=== PATIENT | female | born 1990 | race Caucasian/White ===

== ENCOUNTER 2017-01-09 14:47 | Inpatient (IN) | payer MEDICAID ==
--- NOTE | 2017-01-07 18:36 | HP ---
Date/Time of Note Date/Time of Note DATE: 01/07/17 TIME: 18:35 OB - History Hx of Present Free Text/Dictation OB Triage Pt is a 26yo at 39+6 presenting with uterine contractions since midday yesterday. Pt has hx of x1, C/S x1 and desires TOLAC. Reports normal FM, denies LOF or VB. Estimated Due Date: Jan 08, 2017 : 3 Para: 2 Care: Good Care Past Family/Social History * Past Medical, Surgical, Family and Obstetric Histories reviewed from chart. OB Admission Exam Vital Signs Vital Signs 97.7 114/75 107-> 99 18 Physical Exam Cervical Dilatation: 1cm Effacement: 50% Station: -2 Membranes: Intact Heart Rate: 120's Accelerations: Accelerations Present Decelerations: No Decelerations Varibility: Moderate Contractions on Admission: >10 Minutes Apart (3 UCs/1hr) OB Assessment/Plan Other Assessment: Term contractions Other plan: Pt in latent labor with infrequent UCs FWB reassuring w/reactive NST Strict labor, ROM and FKC precautions reviewed Pt verbalized understanding Pt instructed to f/up with primary OBDr. Khan's office tomorrow Questions answered to patient's satisfaction LISY DIEHL MD Jan 07, 2017 18:36
[~2017-01-09] VITALS: Ht 152.4 cm; Wt 56.8 kg
[~2017-01-09 14:47] MED LIST: PRENAT PO
[2017-01-09 15:05] VITALS: Ht 152.4 cm; Wt 56.8 kg
[2017-01-09 15:06] VITALS: BP 125/75; PULSE 88; RESP 18
--- NOTE | 2017-01-09 15:29 | RADRPT ---
PROCEDURE: US OB biophysical profile. CLINICAL INDICATION: decreased movements, post dates TECHNIQUE: Multiple sonographic images of the pelvis were obtained. The images were reviewed on a PACS workstation. COMPARISON: No prior studies are available for comparison. FINDINGS: There is a single viable intrauterine gestation. Cardiac activity is present with 118 beats per min tessie. There is a vertex presentation. The placenta is anterior. There is no evidence of placental abruption. There is a decreased amount of amniotic fluid with an PHANI = 6.4 cm. Biophysical profile: movement 2/2 tone 2/2. breathing 2/2 PHANI 2/2 Total 06/23 RPTAT: AA . IMPRESSION: Normal biophysical profile. Mild oligohydramnios. . .Himanshu Loya MD, Date Time Electronically viewed and signed by .Himanshu Loya MD, MD on 01/09/2017 15:28 .S/
--- NOTE | 2017-01-09 16:03 | HP ---
Date/Time of Note Date/Time of Note DATE: 01/09/17 TIME: 16:02 OB - History Hx of Present Free Text/Dictation OB Triage Pt is a 26yo at 40+1 presenting with uterine contractions x4d. She was seen in OB triage and SVE was 1/50/-2 on 01/07/17, then in Dr. Khan's office and said to be 2/100+1 yesterday. She was due for ANTC today however when she went and told the staff she was charity, they sent her straight to triage. Pt has hx of x1, C/S x1 and desires TOLAC. Reports normal FM, denies LOF or VB. PROCEDURE: US OB biophysical profile. CLINICAL INDICATION: decreased movements, post dates TECHNIQUE: Multiple sonographic images of the pelvis were obtained. The images were reviewed on a PACS workstation. COMPARISON: No prior studies are available for comparison. FINDINGS: There is a single viable intrauterine gestation. Cardiac activity is present with 118 beats per minute. There is a vertex presentation. The placenta is anterior. There is no evidence of placental abruption. There is a decreased amount of amniotic fluid with an PHANI = 6.4 cm. Biophysical profile: movement 2/2 tone 2/2. breathing 2/2 PHANI 2/2 Total 88 RPTAT: AA . IMPRESSION: Normal biophysical profile. Mild oligohydramnios. . Estimated Due Date: Jan 08, 2017 : 3 Para: 2 Care: Good Care Obstetrical Complications: None Medical Complications: None Past Family/Social History * Past Medical, Surgical, Family and Obstetric Histories reviewed from chart. Blood Type: O+ Rubella: immune RPR/VDRL: Negative GBS Status: Negative HBsAG: Negative OB Admission Exam Vital Signs Vital Signs Vital Signs Date Time Temp Pulse Resp B/P Pulse Ox O2 Delivery O2 Flow Rate FiO2 01/09/17 15:06 97.8 88 18 125/75 Room Air Physical Exam Cervical Dilatation: 1cm Effacement: Other (40%) Station: -2 (posterior) Membranes: Intact Heart Rate: 120's Accelerations: Accelerations Present Decelerations: No Decelerations Varibility: Moderate Contractions on Admission: < 5 Minutes Apart (q2-6) OB Assessment/Plan Other Assessment: Term UCs without cervical change Reassuring status PHANI 6.5cm Hx of C/S x1, desiring TOLAC Other plan: Given hx of prior C/S, unchanged cervical exam over 2hrs and pt quite uncomfortable, pt offered therapeutic rest and prolonged r/o labor Morphine 10mg IM and Compazine 10mg IM x1 given S/p PO hydration. Will repeat PHANI Reevaluate pt in several hours Admission pending cervical change and/or PHANI LISY DIEHL MD Jan 09, 2017 16:03
[2017-01-09] MEDS ORDERED: PROCHLORPERAZINE 10 MG INJ IM ONE (18:00)
[2017-01-09] MEDS ORDERED: morphine 10 MG INJ IM ONE (18:00)
--- NOTE | 2017-01-09 18:52 | RADRPT ---
PROCEDURE: US OB. CLINICAL INDICATION: Pelvic pain. Lower 85. TECHNIQUE: Multiple sonographic images of the pelvis were obtained. The images were reviewed on a PACS workstation. COMPARISON: No prior studies are available for comparison. FINDINGS: There is a single viable intrauterine gestation. Cardiac activity is present with 137 beats per min pamunkey. There is a vertex presentation. The placenta is grade II and anterior. There is no evidence for an abruption or placenta previa. The PHANI is 10 cm. IMPRESSION: PHANI = 10 cm RPTAT: HPNM Physician Vicky Date Time Electronically viewed and signed by Physician Vicky on 01/09/2017 18:52 /
[2017-01-09] MEDS ORDERED: IBUPROFEN 600 MG TAB PO PRN (20:30)
[2017-01-09] MEDS ORDERED: CARBOPROST 250 MCG INJ IM PRN (20:30)
[2017-01-09] MEDS ORDERED: BUTORPHANOL 2 MG INJ IV PRN (20:30)
[2017-01-09] MEDS ORDERED: LIDOCAINE 1% (MPF) 30 ML INJ INJ PRN (20:30)
[2017-01-09] MEDS ORDERED: METHYLERGONOVINE 0.2 MG INJ IM PRN (20:30)
[2017-01-09] MEDS ORDERED: OXYTOCIN 30 UNITS/LR 500 ML IV PRN (20:30)
[2017-01-09] MEDS ORDERED: MISOPROSTOL 200 MCG TAB PR PRN (20:30)
[2017-01-09] MEDS ORDERED: OXYTOCIN 30 UNITS/LR 500 ML IV SCH ×2 (20:30)
--- NOTE | 2017-01-09 20:58 | TRIAGE ---
OB Triage Datetime Report Generated by CPN: 01/09/2017 20:57 Datetime: 01/09/2017 19:00 Frequency: 3-6 Monitor Mode: External Duration (sec)2399: 50-90 Quality: Moderate Pattern: Normal: <= 5 Contractions in 10 Minutes Resting Tone [place]: Relaxed FHR Baseline Rate: 120 Monitor Mode: External US FHR Baseline Changes: No Baseline Change Variability: Moderate 6-25 bpm Accelerations: 15X15 Decelerations: None Category: Category I Pain Scale: 6 Pain Presence: Intermittent Pain Type: Contraction; Pressure Pain Location: Abdomen; Back Pain Goal: 0 Pain Relief Measures: Comfort Measures Datetime: 01/09/2017 18:00 Frequency: 2-6 Monitor Mode: External Duration (sec)2399: 50-100 Quality: Moderate Pattern: Normal: <= 5 Contractions in 10 Minutes Resting Tone [place]: Relaxed FHR Baseline Rate: 120 Monitor Mode: External US FHR Baseline Changes: No Baseline Change Variability: Moderate 6-25 bpm Accelerations: 15X15 Decelerations: None Category: Category I Pain Scale: 6 Pain Presence: Intermittent Pain Type: Contraction; Pressure Pain Location: Abdomen; Back Pain Goal: 0 Pain Relief Measures: Comfort Measures Datetime: 01/09/2017 17:11 Dilatation (cms): 1.0 Effacement (%): 50 Station: -2 Exam By: Sanjuanita RN Datetime: 01/09/2017 16:00 Assessment Type: Triage Level of Consciousness: Fully Conscious DTR's/Clonus: DTRs 2+; No Clonus Headache: Denies Blurred Vision: No Respiratory Effort: Unlabored; Regular Rhythm; Equal Expansion Breath Sounds, Left: Clear and Equal Breath Sounds, Right: Clear and Equal Nausea/Vomiting: Denies RUQ Epigastric Pain: Denies Lower Extremities Edema: None Degree: None Upper Extremities Edema: None Degree: None Facial Edema: None History of Falling: (0) No Secondary Diagnosis: (0) No Ambulatory Aid: (0) Bedrest/Nurse Assist IV Therapy: (0) No Gait: (0) Normal/Bedrest/Immobile Mental Status: (0) Oriented to Own Ability Fall Score: 0 Fall Risk Score Definition: No Risk: No action required Datetime: 01/09/2017 15:16 Frequency: OCC Duration (sec)2399: 60-90 FHR Baseline Rate: 120 Monitor Mode: External US FHR Baseline Changes: No Baseline Change Variability: Moderate 6-25 bpm Accelerations: 15X15 Decelerations: None Category: Category I Pain Scale: 5 Pain Presence: Intermittent Pain Type: Contraction; Pressure Pain Location: Abdomen; Back Pain Goal: 0 Pain Relief Measures: Comfort Measures Datetime: 01/09/2017 15:04 Time of Arrival: 01/09/2017 14:44 EGA: 40.1 Arrived By: Ambulatory Arrived From: Dr. Office Chief Complaint: UC Movement: Present Contractions: Regular Time Contractions Began: 01/08/2017 22:00 Rupture of Membranes: Denies Vaginal Bleeding: None Vaginal Discharge: Denies Recent Sexual Intercouse: Denies Abdominal Trauma: Not Applicable Patient Complaints: Contractions Time Provider Notified: 01/09/2017 14:50 Provider Notified: Kevin Initial Plan: NST, BPP/PHANI, allow pt to ambulate for 2 hours, perform repeat VE Datetime: 01/09/2017 15:00 Dilatation (cms): 1.5 Effacement (%): 40 Station: -2 Exam By: MD Brown Datetime: 01/09/2017 14:55 Stage of : OB Triage Datetime: 01/07/2017 18:00 Stage of : OB Triage Level of Consciousness: Fully Conscious Frequency: 2UC/HR Monitor Mode: External Duration (sec)2399: 70-110 Quality: Moderate Resting Tone [place]: Relaxed FHR Baseline Rate: 125 Monitor Mode: External US Variability: Moderate 6-25 bpm Accelerations: 15X15 Decelerations: None Pain Scale: 3 Pain Presence: Intermittent Pain Type: Cramping Pain Location: Abdomen Pain Goal: 3 Pain Relief Measures: Comfort Measures Membrane Status: Intact Vaginal Bleeding: None Datetime: 01/07/2017 17:20 Fall Score: 0 Fall Risk Score Definition: No Risk: No action required Datetime: 01/07/2017 17:18 EGA: 39.6
[2017-01-09] MEDS: LACTATED RINGER'S 1,000 ML IV SCH (22:20)
[2017-01-09 22:34] LABS: ADD SCAN DIFF NO
[2017-01-09 22:37] LABS: BASOPHIL # 0.1 10^3/ul (0.0-0.1); BASOPHILS % 0.5 % (0.0-2.0); EOSINOPHILS # 0.1 10^3/ul (0.0-0.5); EOSINOPHILS % 0.7 % (0.0-7.0); HEMATOCRIT 34.7 % (37.0-47.0); LYMPHOCYTES % 21.1 % (15.0-51.0); MEAN CORPUSCULAR HEMOGLOBIN 31.5 pg (29.0-33.0); MEAN CORPUSCULAR HGB CONC 34.6 g/dl (32.0-37.0); MEAN CORPUSCULAR VOLUME 91.1 fl (82.0-101.0); MEAN PLATELET VOLUME 11.4 fl (7.4-10.4); MONOCYTE # 0.7 10^3/ul (0.3-0.9); MONOCYTES % 5.1 % (0.0-11.0); NEUTROPHIL # 10.2 10^3/ul (1.6-7.5); NEUTROPHILS % 71.7 % (39.0-77.0); PLATELET COUNT 187 10^3/UL (140-415); RED BLOOD COUNT 3.81 10^6/ul (4.20-5.40); WHITE BLOOD COUNT 14.2 10^3/ul (4.8-10.8)
[2017-01-09 22:50] LABS: INR 0.86; PARTIAL THROMBOPLASTIN TIME 28.5 Sec (25.0-35.0); PROTIME 11.7 Sec (12.2-14.2); PT RATIO 0.9
[2017-01-09] MEDS ORDERED: LACTATED RINGER'S 1,000 ML IV PRN (23:00)
[2017-01-10] MEDS: LACTATED RINGER'S 1,000 ML IV SCH ×7 (03:28→23:33)
[2017-01-10] MEDS ORDERED: LACTATED RINGER'S 1,000 ML IV ONE (03:37)
[2017-01-10] MEDS ORDERED: FENTAnyl 2MCG/ML-ROPIV 0.2% 100 ML ONE (03:43)
[2017-01-10] MEDS ORDERED: CITRIC ACID/NA CITRATE 30 ML CUP ONE (03:54)
[2017-01-10] MEDS ORDERED: ONDANSETRON 4 MG INJ ONE ×2 (03:54→10:46)
[2017-01-10] MEDS ORDERED: CITRIC ACID/NA CITRATE 30 ML CUP PO ONE (04:00)
[2017-01-10] MEDS ORDERED: HYDROmorphONE 1 MG/ML SYG IV PRN ×4 (04:00→12:30)
[2017-01-10] MEDS ORDERED: FENTAnyl 2MCG/ML-ROPIV 0.2% 100 ML BAG EPI SCH (04:00)
[2017-01-10] MEDS ORDERED: NALOXONE (0.4 MG/ML) INJ IV PRN ×2 (04:00→12:30)
[2017-01-10] MEDS ORDERED: KETOROLAC 30 MG INJ IV PRN (04:00)
[2017-01-10] MEDS ORDERED: ONDANSETRON 4 MG INJ IV ONE (04:00)
[2017-01-10] MEDS ORDERED: ONDANSETRON 4 MG INJ IV PRN ×2 (04:00→12:30)
[2017-01-10] MEDS ORDERED: PROCHLORPERAZINE 10 MG INJ IV PRN (04:00)
[2017-01-10] MEDS ORDERED: DIPHENHYDRAMINE 50 MG INJ IV PRN ×2 (04:00→12:30)
[2017-01-10] MEDS: CEFAZOLIN 2 GM/50 ML (PMX) 50 ML IV SCH ×2 (10:20→10:55)
[2017-01-10] MEDS ORDERED: morphine SULFATE/PF (10 MG/10 ML) INJ ONE (10:46)
[2017-01-10] MEDS ORDERED: METOCLOPRAMIDE 10 MG INJ ONE (10:46)
[2017-01-10] MEDS ORDERED: OXYTOCIN 30 UNITS/LR 500 ML IV ONE ×2 (10:46→11:32)
[2017-01-10] MEDS ORDERED: EPHEDrine SULFATE 50 MG/5 ML SYG ONE (10:46)
[2017-01-10] MEDS ORDERED: OXYTOCIN 10 UNIT INJ ONE ×2 (10:47)
[2017-01-10] MEDS ORDERED: MEPERIDINE 100 MG INJ ONE (10:56)
[2017-01-10] MEDS ORDERED: LACTATED RINGER'S 1,000 ML IV SCH ×3 (11:58)
[2017-01-10] MEDS ORDERED: METHYLERGONOVINE 0.2 MG INJ IM PRN ×4 (12:00)
[2017-01-10] MEDS ORDERED: NA PHOSPHATE/BIPHOS 133 ML ENEMA PR PRN (12:00)
[2017-01-10] MEDS ORDERED: IBUPROFEN 600 MG TAB PO PRN ×3 (12:00)
[2017-01-10] MEDS ORDERED: OXYTOCIN 30 UNITS/LR 500 ML IV PRN ×4 (12:00)
[2017-01-10] MEDS ORDERED: ACETAMINOPHEN 500 MG TAB PO PRN ×4 (12:00)
[2017-01-10] MEDS ORDERED: MISOPROSTOL 200 MCG TAB PR PRN ×4 (12:00)
[2017-01-10] MEDS ORDERED: METHYLERGONOVINE 0.2 MG TAB PO PRN (12:00)
[2017-01-10] MEDS ORDERED: CARBOPROST 250 MCG INJ IM PRN ×4 (12:00)
[2017-01-10] MEDS ORDERED: OXYCODONE/ACETAMINOPHEN (5/325) TAB PO PRN ×2 (12:00)
[2017-01-10] MEDS ORDERED: LANOLIN 7 GM TUBE TOP PRN (12:00)
[2017-01-10] MEDS ORDERED: morphine 2 MG INJ IV PRN ×2 (12:30)
[2017-01-10] MEDS ORDERED: morphine SULFATE/PF (10 MG/10 ML) INJ EPI ONE (12:30)
--- NOTE | 2017-01-10 12:33 | HP ---
Date/Time of Note Date/Time of Note DATE: 01/10/17 TIME: 12:21 OB - History Hx of Present Free Text/Dictation January 10, 2017 Preoperative history and physical This patient is a 26 years old 3 para 2 now about 40 weeks and 2 days came to the triage area due to contractions. In reviewing her past medical history ,she had 2 previous delivery 1 by vaginal delivery and second 1 by section. She expressed a desire to have a this time On physical examination, she is a well-developed well-nourished lady post term. Her ear nose throat appear to be normal neck is normal no neck vein distention no thyromegaly no lymph node enlargement anywhere in the body. Her chest is clear to auscultation her precaution no rales. Heart normal sinus rhythm no murmur Breasts are soft no masses nipples are intact Abdomen is soft she is charity every 4-5 minutes heart tone early this morning was normal without any deceleration however as about 15-20 minutes ago she started having deceleration and what appears to be late type pattern No CVA tenderness . fetus appears to be in vertex presentation On pelvic examination that I did this morning; her cervix is about 3 cm dilated and about 80-90% effaced , head at -1 station Extremities no edema no varicosities, knee jerk reflex is normal. This patient started having deceleration and when amniotic fluid was ruptured , it was heavily meconium stained These new findings were discussed with the patient and the decision was made to go ahead with a repeat section. Possible complications of the and the need for another was discussed with the patient she understands all of those and will undergo this procedure End of dictation . Laboratory Tests Test 01/09/17 22:20 Activated Partial Thromboplast Time 28.5Sec Basophils # 0.110^3/ul Basophils % 0.5% Eosinophils # 0.110^3/ul Eosinophils % 0.7% Hematocrit 34.7% Hemoglobin 12.0g/dl Hepatitis B Surface Antigen NEGATIVE INR International Normalized Ratio 0.86 Lymphocytes # 3.010^3/ul Lymphocytes % 21.1% Mean Corpuscular Hemoglobin 31.5pg Mean Corpuscular Hemoglobin Concent 34.6g/dl Mean Corpuscular Volume 91.1fl Mean Platelet Volume 11.4fl Monocytes # 0.710^3/ul Monocytes % 5.1% Neutrophils # 10.210^3/ul Neutrophils % 71.7% Nucleated Red Blood Cells # 0.010^3/ul Nucleated Red Blood Cells % 0.0/100WBC Platelet Count 11589^3/UL Prothrombin Time 11.7Sec Prothrombin Time Ratio 0.9 Red Blood Count 3.8110^6/ul Red Cell Distribution Width 14.0% White Blood Count 14.210^3/ul Current Medications Medications (Trade) Dose Ordered Sig/Leonel Route PRN Reason Start Time Stop Time Status Last Admin Dose Admin Morphine Sulfate (morphine) 10 mg ONCE ONCE IM 01/09/17 18:00 01/09/17 18:04 DC 01/09/17 19:02 Prochlorperazine 10 mg 10 mg ONCE ONCE IM 01/09/17 18:00 01/09/17 18:05 DC 01/09/17 20:07 Lactated Ringer's (Lr) 1,000 ml @ 125 mls/hr Q8H IV 01/09/17 20:28 01/10/17 12:16 DC 01/10/17 10:33 Butorphanol Tartrate (Stadol) 2 mg Q2H PRN IV PAIN 01/09/17 20:30 01/10/17 12:17 DC Lidocaine 30 ml 30 ml ONCE PRN INJ EPISIOTOMY/TEARING 01/09/17 20:30 01/10/17 12:17 DC Oxytocin/Lactated Ringer's 500 ml @ 125 mls/hr ONCE -MAY REPEAT X1 IV 01/09/17 20:30 01/10/17 12:16 DC Oxytocin/Lactated Ringer's 500 ml @ 125 mls/hr ONCE IV 01/09/17 20:30 01/10/17 12:17 DC Ibuprofen 600 mg 600 mg ONCE PRN PO Mild Pain (Pain Score 1-3) 01/09/17 20:30 01/10/17 12:17 DC Lactated Ringer's 1,000 ml @ 2,000 mls/hr Q30M PRN IV PRE-EPIDURAL BOLUS 01/09/17 23:00 01/10/17 12:17 DC Oxytocin/Lactated Ringer's 500 ml @ 0 mls/hr ONCE PRN IV For Hemorrhage Management 01/09/17 20:30 01/10/17 12:17 DC Methylergonovine Maleate (Methergine) 0.2 mg ONCE PRN IM VAGINAL BLEEDING 01/09/17 20:30 01/10/17 12:17 DC Carboprost Tromethamine (Hemabate) 250 mcg ONCE PRN IM VAGINAL BLEEDING 01/09/17 20:30 01/10/17 12:18 DC Misoprostol 1000 mcg 1,000 mcg ONCE PRN [place] VAGINAL BLEEDING 01/09/17 20:30 01/10/17 12:18 DC Lactated Ringer's (Lr) 1,000 ml @ 1,000 mls/hr Q1H ONCE IV 01/10/17 03:37 01/10/17 04:36 DC Ondansetron HCl (Zofran Inj) 4 mg pre-procedure ONCE IV 01/10/17 04:00 01/10/17 04:01 DC 01/10/17 04:16 Citric Acid/ Sodium Citrate (Bicitra) 30 ml pre-procedure ONCE PO 01/10/17 04:00 01/10/17 04:01 DC 01/10/17 04:16 Naloxone HCl (Narcan) 0.1 mg Q2M PRN IV FOR RESP RATE 8 OR LESS 01/10/17 04:00 01/10/17 12:16 DC Ketorolac Tromethamine (Toradol) 30 mg Q6H PRN IV PAIN 01/10/17 04:00 01/10/17 12:05 DC Hydromorphone HCl (Dilaudid) 0.2 mg Q3H PRN IV PAIN LEVEL 1-5 01/10/17 04:00 01/10/17 12:16 DC Hydromorphone HCl (Dilaudid) 0.4 mg Q3H PRN IV PAIN LEVEL 6-10 01/10/17 04:00 01/10/17 12:16 DC Diphenhydramine HCl (Benadryl) 25 mg Q6H PRN IV ITCHING 01/10/17 04:00 01/10/17 12:16 DC Ondansetron HCl (Zofran Inj) 4 mg Q6H PRN IV NAUSEA AND/OR VOMITING 01/10/17 04:00 01/10/17 12:16 DC Prochlorperazine (Compazine Inj) 10 mg ONCE PRN IV NAUSEA AND/OR VOMITING 01/10/17 04:00 01/10/17 12:17 DC Fentanyl/ Ropivacaine 100 ml 100 ml EPIDURAL INFUSION EPI 01/10/17 04:00 01/10/17 12:17 DC Fentanyl/ Ropivacaine 100 ml @ ud STK-MED ONCE .ROUTE 01/10/17 03:43 01/10/17 03:44 DC Citric Acid/ Sodium Citrate (Bicitra) 30 ml STK-MED ONCE .ROUTE 01/10/17 03:54 01/10/17 03:55 DC Ondansetron HCl 4 mg 4 mg STK-MED ONCE .ROUTE 01/10/17 03:54 01/10/17 03:55 DC Cefazolin Sodium/ Dextrose (Ancef 2 Gm/50 ml (Pmx)) 50 ml @ 100 mls/hr ONCE IV 01/10/17 10:30 01/10/17 12:16 DC 01/10/17 10:55 Ephedrine Sulfate 50 mg 50 mg STK-MED ONCE .ROUTE 01/10/17 10:46 01/10/17 10:47 DC Oxytocin/Lactated Ringer's 500 ml @ ud STK-MED ONCE IV 01/10/17 10:46 01/10/17 10:47 DC Morphine Sulfate (Duramorph) 10 mg STK-MED ONCE .ROUTE 01/10/17 10:46 01/10/17 10:47 DC Ondansetron HCl (Zofran Inj) 4 mg STK-MED ONCE .ROUTE 01/10/17 10:46 01/10/17 10:47 DC Metoclopramide HCl (Reglan) 10 mg STK-MED ONCE .ROUTE 01/10/17 10:46 01/10/17 10:47 DC Oxytocin (Oxytocin) 10 units STK-MED ONCE .ROUTE 01/10/17 10:47 01/10/17 10:48 DC Oxytocin (Oxytocin) 10 units STK-MED ONCE .ROUTE 01/10/17 10:47 01/10/17 10:48 DC Meperidine HCl 100 mg 100 mg STK-MED ONCE .ROUTE 01/10/17 10:56 01/10/17 10:57 DC Oxytocin/Lactated Ringer's 500 ml @ ud STK-MED ONCE IV 01/10/17 11:32 01/10/17 11:33 DC Naloxone HCl (Narcan) 0.1 mg Q2M PRN IV FOR RESP RATE 8 OR LESS 01/10/17 12:30 01/11/17 12:29 Ketorolac Tromethamine (Toradol) 30 mg Q6H PRN IV PAIN 01/10/17 12:30 01/11/17 12:29 Morphine Sulfate (morphine) 2 mg Q3H PRN IV PAIN LEVEL 1-5 01/10/17 12:30 01/11/17 12:29 Morphine Sulfate (morphine) 4 mg Q3H PRN IV PAIN LEVEL 6-10 01/10/17 12:30 01/11/17 12:29 Hydromorphone HCl (Dilaudid) 0.2 mg Q3H PRN IV PAIN LEVEL 1-5 01/10/17 12:30 01/11/17 12:29 Hydromorphone HCl (Dilaudid) 0.4 mg Q3H PRN IV PAIN LEVEL 6-10 01/10/17 12:30 01/11/17 12:29 Diphenhydramine HCl (Benadryl) 25 mg Q6H PRN IV ITCHING 01/10/17 12:30 01/11/17 12:29 Ondansetron HCl (Zofran Inj) 4 mg Q6H PRN IV NAUSEA AND/OR VOMITING 01/10/17 12:30 01/11/17 12:29 Morphine Sulfate 2 mg 2 mg GIVEN ANESTH ONCE EPI 01/10/17 12:30 01/10/17 12:31 Lactated Ringer's 1,000 ml @ 125 mls/hr Q8H IV 01/10/17 11:58 UNV Oxytocin/Lactated Ringer's 500 ml @ 125 mls/hr Q4H IV 01/10/17 11:58 01/10/17 19:57 UNV Methylergonovine Maleate (Methergine) 0.2 mg Q6H PRN PO VAGINAL BLEEDING 01/10/17 12:00 UNV Oxycodone/ Acetaminophen (Percocet (5/ 325)) 1 tab Q4H PRN PO PAIN LEVEL 4-6 01/10/17 12:00 UNV Oxycodone/ Acetaminophen (Percocet (5/ 325)) 2 tab Q4H PRN PO PAIN LEVEL 7-10 01/10/17 12:00 UNV Simethicone (Mylicon) 160 mg Q8H PRN PO DISTENSION/GAS/BLOATING 01/10/17 12:00 UNV Sodium Biphosphate/ Sodium Phosphate (Fleet Enema) 133 ml DAILY PRN [place] CONSTIPATION 01/10/17 12:00 UNV Lanolin (Iss-Q-Chfplj) 1 applic BEDSIDE MEDICATION PRN TOP BEDSIDE FOR [place]ILTON TO NIPPLES 01/10/17 12:00 UNV Diphtheria/ Tetanus/Acell Pertussis 0.5 ml 0.5 ml ONCE ONCE IM* 01/13/17 09:00 01/13/17 09:01 UNV Oxytocin/Lactated Ringer's 500 ml @ 0 mls/hr ONCE PRN IV For Hemorrhage Management 01/10/17 12:00 UNV Methylergonovine Maleate (Methergine) 0.2 mg ONCE PRN IM VAGINAL BLEEDING 01/10/17 12:00 UNV Carboprost Tromethamine (Hemabate) 250 mcg ONCE PRN IM VAGINAL BLEEDING 01/10/17 12:00 UNV Misoprostol (Cytotec) 1,000 mcg ONCE PRN [place] VAGINAL BLEEDING 01/10/17 12:00 UNV Ibuprofen (Motrin) 600 mg Q6H PRN PO PAIN 01/10/17 12:00 UNV Acetaminophen 500 mg 500 mg Q6H PRN PO PAIN AND OR ELEVATED TEMP 01/10/17 12:00 UNV Lactated Ringer's 1,000 ml @ 125 mls/hr Q8H IV 01/10/17 11:58 UNV Oxytocin/Lactated Ringer's 500 ml @ 0 mls/hr ONCE PRN IV For Hemorrhage Management 01/10/17 12:00 UNV Methylergonovine Maleate (Methergine) 0.2 mg ONCE PRN IM VAGINAL BLEEDING 01/10/17 12:00 UNV Carboprost Tromethamine (Hemabate) 250 mcg ONCE PRN IM VAGINAL BLEEDING 01/10/17 12:00 UNV Misoprostol (Cytotec) 1,000 mcg ONCE PRN [place] VAGINAL BLEEDING 01/10/17 12:00 UNV Ibuprofen (Motrin) 600 mg Q6H PRN PO PAIN 01/10/17 12:00 UNV Acetaminophen 500 mg 500 mg Q6H PRN PO PAIN AND OR ELEVATED TEMP 01/10/17 12:00 UNV Lactated Ringer's 1,000 ml @ 125 mls/hr Q8H IV 01/10/17 11:58 UNV Oxytocin/Lactated Ringer's 500 ml @ 0 mls/hr ONCE PRN IV For Hemorrhage Management 01/10/17 12:00 UNV Methylergonovine Maleate (Methergine) 0.2 mg ONCE PRN IM VAGINAL BLEEDING 01/10/17 12:00 UNV Carboprost Tromethamine (Hemabate) 250 mcg ONCE PRN IM VAGINAL BLEEDING 01/10/17 12:00 UNV Misoprostol (Cytotec) 1,000 mcg ONCE PRN [place] VAGINAL BLEEDING 01/10/17 12:00 UNV Ibuprofen (Motrin) 600 mg Q6H PRN PO PAIN 01/10/17 12:00 UNV Acetaminophen 500 mg 500 mg Q6H PRN PO PAIN AND OR ELEVATED TEMP 01/10/17 12:00 UNV Lactated Ringer's 1,000 ml @ 125 mls/hr Q8H IV 01/10/17 11:58 UNV Oxytocin/Lactated Ringer's 500 ml @ 0 mls/hr ONCE PRN IV For Hemorrhage Management 01/10/17 12:00 UNV Methylergonovine Maleate (Methergine) 0.2 mg ONCE PRN IM VAGINAL BLEEDING 01/10/17 12:00 UNV Carboprost Tromethamine (Hemabate) 250 mcg ONCE PRN IM VAGINAL BLEEDING 01/10/17 12:00 UNV Misoprostol (Cytotec) 1,000 mcg ONCE PRN [place] VAGINAL BLEEDING 01/10/17 12:00 UNV Ibuprofen (Motrin) 600 mg Q6H PRN PO PAIN 01/10/17 12:00 UNV Acetaminophen (Tylenol Tab) 500 mg Q6H PRN PO PAIN AND OR ELEVATED TEMP 01/10/17 12:00 UNV I, the undersigned physician, hereby certify that I have discussed the procedure described in this consent form with this patient (or the patient's legal fulfillment representative), including: * The risk and benefits of the procedure; * Any adverse reactions that may reasonably be expected to occur; * Any alternative efficacious methods of treatment which may be medically viable ; * The potential problems that may occur during recuperation; * Potential for blood transfusion and associated risks/benefits; and I further certify that the patient/legally responsible person was encouraged to ask question and that all questions were answered. Past Family/Social History * Past Medical, Surgical, Family and Obstetric Histories reviewed from chart. OB Admission Exam Vital Signs Vital Signs Vital Signs Date Time Temp Pulse Resp B/P Pulse Ox O2 Delivery O2 Flow Rate FiO2 01/09/17 15:06 97.8 88 18 125/75 Room Air Last 72 hours Lab Results CBC & BMP 01/09/17 22:20 JEFFERSON PFEIFFER MD Jan 10, 2017 12:31
[2017-01-10] MEDS: OXYTOCIN 30 UNITS/LR 500 ML IV SCH ×3 (12:39→19:18)
--- NOTE | 2017-01-10 12:39 | OPR ---
Operative Report Planned Procedure Procedure date Jan 10, 2017 Procedure Description Under satisfactory epidural anesthesia, the patient was prepped and draped and placed in a supine position, tilted to the left. Pfannenstiel incision was made, and carried through the subcutaneous fatty tissues. Bleeders brought under control with electrocautery. Fascia incised to the length of the incision. Rectus muscles from the fascia, divided midline. Peritoneum exposed, entered through a transverse incision. Exploration of abdomen revealed gravid uterus. Bladder flap was developed. Transverse incision was made in the lower segment of the uterus. Amniotic sac ruptured. Amniotic fluid noted and it was heavily meconium stained . Nasal oropharyngeal suction was performed. The baby was handed to the team for immediate attention. The placenta was delivered manually intact. Uterine cavity was cleaned with wet sponge and drainage established. Uterus closed in 2 layers using chromic catgut 1 in continuous fashion. Peritoneal cavity irrigated with warm saline. Sponge, needle and instrument count reported to be correct. Abdominal peritoneum closed with 0 chromic catgut continuously. Rectus muscle approximated with the same material. Fascia closed with Vicryl No. 1 in a running manner locking every third suture , and skin closed with hui. Estimated blood loss was about 500 cc. The was a female with score of 8 and 1 minute 9 in 5 minutes. Baby's weight was 5 lbs. 7 oz. At the end of the surgery patient was doing well and she was transferred to recovery room in stable condition End of dictation Physician Certification I JEFFERSON PFEIFFER MD Jan 10, 2017 12:39 * Any alternative efficacious methods of treatment which may be medically viable ; * The potential problems that may occur during recuperation; * Potential for blood transfusion and associated risks/benefits; and I further certify that the patient/legally responsible person was encouraged to ask question and that all questions were answered. JEFFERSON PFEIFFER MD Jan 10, 2017 12:39 JEFFERSON PFEIFFER MD Jan 10, 2017 12:39
[2017-01-10] MEDS: KETOROLAC 30 MG INJ IV PRN ×2 (14:05→23:45)
[2017-01-10 18:00] VITALS: BP 122/80; RESP 18
[2017-01-10 20:00] VITALS: BP 129/75; PULSE 103; RESP 20
[2017-01-10 21:00] VITALS: BP 124/85; PULSE 108; RESP 20
[2017-01-10 22:00] VITALS: BP 121/80; PULSE 106; RESP 16
[2017-01-11] VITALS: BP 118/78; PULSE 105; RESP 20
[2017-01-11 04:00] VITALS: BP 115/65; PULSE 106; RESP 18
[2017-01-11] MEDS: KETOROLAC 30 MG INJ IV PRN (06:08)
[2017-01-11 07:23] LABS: ADD SCAN DIFF NO
[2017-01-11 07:31] LABS: BASOPHILS % 0.2 % (0.0-2.0); EOSINOPHILS % 0.1 % (0.0-7.0); HEMATOCRIT 26.1 % (37.0-47.0); HEMOGLOBIN 8.9 g/dl (12.0-16.0); LYMPHOCYTES # 1.1 10^3/ul (0.8-2.9); LYMPHOCYTES % 7.8 % (15.0-51.0); MEAN CORPUSCULAR HEMOGLOBIN 31.6 pg (29.0-33.0); MEAN CORPUSCULAR HGB CONC 34.1 g/dl (32.0-37.0); MEAN CORPUSCULAR VOLUME 92.6 fl (82.0-101.0); MEAN PLATELET VOLUME 11.7 fl (7.4-10.4); MONOCYTE # 0.4 10^3/ul (0.3-0.9); MONOCYTES % 3.1 % (0.0-11.0); NEUTROPHIL # 12.4 10^3/ul (1.6-7.5); NEUTROPHILS % 88.2 % (39.0-77.0); PLATELET COUNT 156 10^3/UL (140-415); RED BLOOD COUNT 2.82 10^6/ul (4.20-5.40); RED CELL DISTRIBUTION WIDTH 14.1 % (11.5-14.5); WHITE BLOOD COUNT 14.1 10^3/ul (4.8-10.8)
[2017-01-11] MEDS: LACTATED RINGER'S 1,000 ML IV SCH ×2 (07:31→19:58)
[2017-01-11 11:43] VITALS: BP 125/71; PULSE 97; RESP 16
[2017-01-11] MEDS: IBUPROFEN 600 MG TAB PO PRN ×2 (12:32→18:36)
--- NOTE | 2017-01-11 14:50 | QN ---
Documentation Comment pt doing well no complaints vss exam wnl ap pt doing well continue care LUIS KRAUS MD Jan 11, 2017 14:50
[2017-01-11 16:40] VITALS: BP 115/62; PULSE 83; RESP 16
[2017-01-11 20:00] VITALS: BP 118/58; PULSE 95; RESP 20
[2017-01-12] MEDS: LACTATED RINGER'S 1,000 ML IV SCH ×3 (03:58→19:58)
[2017-01-12 08:09] VITALS: BP 118/65; PULSE 74; RESP 14
[2017-01-12] MEDS: IBUPROFEN 600 MG TAB PO PRN ×2 (12:15→17:29)
[2017-01-12 16:30] VITALS: BP 127/82; PULSE 76; RESP 14
[2017-01-12 20:05] VITALS: BP 122/77; PULSE 98; RESP 19
[2017-01-13 04:15] VITALS: BP 125/69; PULSE 86; RESP 18
[2017-01-13 07:45] VITALS: BP 115/69; PULSE 78; RESP 18
[2017-01-13] MEDS ORDERED: INFLUENZA VIRUS VACCINE 0.5 ML (DISPENSING) IM* ONE (09:00)
[2017-01-13] MEDS ORDERED: DIPHTH/TET/ACEL PERTUSS (ADULT) 0.5 ML VIAL IM* ONE (09:00)
--- NOTE | 2017-01-13 10:45 | DS ---
Date/Time of Note Date/Time of Note DATE: 01/13/17 TIME: 10:40 Obstetrical Discharge Record Final Diagnosis Final Diagnosis: Term delivered Vaginal Delivery Other Delivery information Post C section day 3 Patient is doing well, Ambulatory She is afebrile Abdomen is soft , Fundus is firm Moderate amount of lochia Breasts are soft, Nipples are intact No calf tenderness. Incision Current Medications Medications (Trade) Dose Ordered Sig/Leonel Route PRN Reason Start Time Stop Time Status Last Admin Dose Admin Morphine Sulfate (morphine) 10 mg ONCE ONCE IM 01/09/17 18:00 01/09/17 18:04 DC 01/09/17 19:02 Prochlorperazine 10 mg 10 mg ONCE ONCE IM 01/09/17 18:00 01/09/17 18:05 DC 01/09/17 20:07 Lactated Ringer's (Lr) 1,000 ml @ 125 mls/hr Q8H IV 01/09/17 20:28 01/10/17 12:16 DC 01/10/17 10:33 Butorphanol Tartrate (Stadol) 2 mg Q2H PRN IV PAIN 01/09/17 20:30 01/10/17 12:17 DC Lidocaine 30 ml 30 ml ONCE PRN INJ EPISIOTOMY/TEARING 01/09/17 20:30 01/10/17 12:17 DC Oxytocin/Lactated Ringer's 500 ml @ 125 mls/hr ONCE -MAY REPEAT X1 IV 01/09/17 20:30 01/10/17 12:16 DC Oxytocin/Lactated Ringer's 500 ml @ 125 mls/hr ONCE IV 01/09/17 20:30 01/10/17 12:17 DC Ibuprofen 600 mg 600 mg ONCE PRN PO Mild Pain (Pain Score 1-3) 01/09/17 20:30 01/10/17 12:17 DC Lactated Ringer's 1,000 ml @ 2,000 mls/hr Q30M PRN IV PRE-EPIDURAL BOLUS 01/09/17 23:00 01/10/17 12:17 DC Oxytocin/Lactated Ringer's 500 ml @ 0 mls/hr ONCE PRN IV For Hemorrhage Management 01/09/17 20:30 01/10/17 12:17 DC Methylergonovine Maleate (Methergine) 0.2 mg ONCE PRN IM VAGINAL BLEEDING 01/09/17 20:30 01/10/17 12:17 DC Carboprost Tromethamine (Hemabate) 250 mcg ONCE PRN IM VAGINAL BLEEDING 01/09/17 20:30 01/10/17 12:18 DC Misoprostol 1000 mcg 1,000 mcg ONCE PRN LA VAGINAL BLEEDING 01/09/17 20:30 01/10/17 12:18 DC Lactated Ringer's (Lr) 1,000 ml @ 1,000 mls/hr Q1H ONCE IV 01/10/17 03:37 01/10/17 04:36 DC Ondansetron HCl (Zofran Inj) 4 mg pre-procedure ONCE IV 01/10/17 04:00 01/10/17 04:01 DC 01/10/17 04:16 Citric Acid/ Sodium Citrate (Bicitra) 30 ml pre-procedure ONCE PO 01/10/17 04:00 01/10/17 04:01 DC 01/10/17 04:16 Naloxone HCl (Narcan) 0.1 mg Q2M PRN IV FOR RESP RATE 8 OR LESS 01/10/17 04:00 01/10/17 12:16 DC Ketorolac Tromethamine (Toradol) 30 mg Q6H PRN IV PAIN 01/10/17 04:00 01/10/17 12:05 DC Hydromorphone HCl (Dilaudid) 0.2 mg Q3H PRN IV PAIN LEVEL 1-5 01/10/17 04:00 01/10/17 12:16 DC Hydromorphone HCl (Dilaudid) 0.4 mg Q3H PRN IV PAIN LEVEL 6-10 01/10/17 04:00 01/10/17 12:16 DC Diphenhydramine HCl (Benadryl) 25 mg Q6H PRN IV ITCHING 01/10/17 04:00 01/10/17 12:16 DC Ondansetron HCl (Zofran Inj) 4 mg Q6H PRN IV NAUSEA AND/OR VOMITING 01/10/17 04:00 01/10/17 12:16 DC Prochlorperazine (Compazine Inj) 10 mg ONCE PRN IV NAUSEA AND/OR VOMITING 01/10/17 04:00 01/10/17 12:17 DC Fentanyl/ Ropivacaine 100 ml 100 ml EPIDURAL INFUSION EPI 01/10/17 04:00 01/10/17 12:17 DC Fentanyl/ Ropivacaine 100 ml @ ud STK-MED ONCE .ROUTE 01/10/17 03:43 01/10/17 03:44 DC Citric Acid/ Sodium Citrate (Bicitra) 30 ml STK-MED ONCE .ROUTE 01/10/17 03:54 01/10/17 03:55 DC Ondansetron HCl 4 mg 4 mg STK-MED ONCE .ROUTE 01/10/17 03:54 01/10/17 03:55 DC Cefazolin Sodium/ Dextrose (Ancef 2 Gm/50 ml (Pmx)) 50 ml @ 100 mls/hr ONCE IV 01/10/17 10:30 01/10/17 12:16 DC 01/10/17 10:55 Ephedrine Sulfate 50 mg 50 mg STK-MED ONCE .ROUTE 01/10/17 10:46 01/10/17 10:47 DC Oxytocin/Lactated Ringer's 500 ml @ ud STK-MED ONCE IV 01/10/17 10:46 01/10/17 10:47 DC Morphine Sulfate (Duramorph) 10 mg STK-MED ONCE .ROUTE 01/10/17 10:46 01/10/17 10:47 DC Ondansetron HCl (Zofran Inj) 4 mg STK-MED ONCE .ROUTE 01/10/17 10:46 01/10/17 10:47 DC Metoclopramide HCl (Reglan) 10 mg STK-MED ONCE .ROUTE 01/10/17 10:46 01/10/17 10:47 DC Oxytocin (Oxytocin) 10 units STK-MED ONCE .ROUTE 01/10/17 10:47 01/10/17 10:48 DC Oxytocin (Oxytocin) 10 units STK-MED ONCE .ROUTE 01/10/17 10:47 01/10/17 10:48 DC Meperidine HCl 100 mg 100 mg STK-MED ONCE .ROUTE 01/10/17 10:56 01/10/17 10:57 DC Oxytocin/Lactated Ringer's 500 ml @ ud STK-MED ONCE IV 01/10/17 11:32 01/10/17 11:33 DC Naloxone HCl (Narcan) 0.1 mg Q2M PRN IV FOR RESP RATE 8 OR LESS 01/10/17 12:30 01/11/17 12:29 DC Ketorolac Tromethamine (Toradol) 30 mg Q6H PRN IV PAIN 01/10/17 12:30 01/11/17 12:29 DC 01/11/17 06:08 Morphine Sulfate (morphine) 2 mg Q3H PRN IV PAIN LEVEL 1-5 01/10/17 12:30 01/11/17 12:29 DC Morphine Sulfate (morphine) 4 mg Q3H PRN IV PAIN LEVEL 6-10 01/10/17 12:30 01/11/17 12:29 DC Hydromorphone HCl (Dilaudid) 0.2 mg Q3H PRN IV PAIN LEVEL 1-5 01/10/17 12:30 01/11/17 12:29 DC Hydromorphone HCl (Dilaudid) 0.4 mg Q3H PRN IV PAIN LEVEL 6-10 01/10/17 12:30 01/11/17 12:29 DC Diphenhydramine HCl (Benadryl) 25 mg Q6H PRN IV ITCHING 01/10/17 12:30 01/11/17 12:29 DC Ondansetron HCl (Zofran Inj) 4 mg Q6H PRN IV NAUSEA AND/OR VOMITING 01/10/17 12:30 01/11/17 12:29 DC Morphine Sulfate 2 mg 2 mg GIVEN ANESTH ONCE EPI 01/10/17 12:30 01/10/17 12:31 DC Lactated Ringer's 1,000 ml @ 125 mls/hr Q8H IV 01/10/17 11:58 01/12/17 21:08 DC 01/11/17 07:31 Oxytocin/Lactated Ringer's 500 ml @ 125 mls/hr Q4H IV 01/10/17 11:58 01/10/17 19:57 DC 01/10/17 19:18 Methylergonovine Maleate (Methergine) 0.2 mg Q6H PRN PO VAGINAL BLEEDING 01/10/17 12:00 Oxycodone/ Acetaminophen (Percocet (5/ 325)) 1 tab Q4H PRN PO PAIN LEVEL 4-6 01/10/17 12:00 01/13/17 08:20 Oxycodone/ Acetaminophen (Percocet (5/ 325)) 2 tab Q4H PRN PO PAIN LEVEL 7-10 01/10/17 12:00 Simethicone (Mylicon) 160 mg Q8H PRN PO DISTENSION/GAS/BLOATING 01/10/17 12:00 Sodium Biphosphate/ Sodium Phosphate (Fleet Enema) 133 ml DAILY PRN LA CONSTIPATION 01/10/17 12:00 Lanolin (Yfr-P-Lquopr) 1 applic BEDSIDE MEDICATION PRN TOP BEDSIDE FOR [place]ILTON TO NIPPLES 01/10/17 12:00 Diphtheria/ Tetanus/Acell Pertussis 0.5 ml 0.5 ml ONCE ONCE IM* 01/13/17 09:00 01/13/17 09:01 DC 01/13/17 08:23 Oxytocin/Lactated Ringer's 500 ml @ 0 mls/hr ONCE PRN IV For Hemorrhage Management 01/10/17 12:00 Methylergonovine Maleate (Methergine) 0.2 mg ONCE PRN IM VAGINAL BLEEDING 01/10/17 12:00 Carboprost Tromethamine (Hemabate) 250 mcg ONCE PRN IM VAGINAL BLEEDING 01/10/17 12:00 Misoprostol (Cytotec) 1,000 mcg ONCE PRN LA VAGINAL BLEEDING 01/10/17 12:00 Ibuprofen (Motrin) 600 mg Q6H PRN PO PAIN 01/11/17 12:00 01/12/17 17:29 Acetaminophen 500 mg 500 mg Q6H PRN PO PAIN AND OR ELEVATED TEMP 01/10/17 12:00 Lactated Ringer's 1,000 ml @ 125 mls/hr Q8H IV 01/10/17 11:58 01/10/17 12:30 DC Oxytocin/Lactated Ringer's 500 ml @ 0 mls/hr ONCE PRN IV For Hemorrhage Management 01/10/17 12:00 01/10/17 12:30 DC Methylergonovine Maleate (Methergine) 0.2 mg ONCE PRN IM VAGINAL BLEEDING 01/10/17 12:00 01/10/17 12:30 DC Carboprost Tromethamine (Hemabate) 250 mcg ONCE PRN IM VAGINAL BLEEDING 01/10/17 12:00 01/10/17 12:30 DC Misoprostol (Cytotec) 1,000 mcg ONCE PRN LA VAGINAL BLEEDING 01/10/17 12:00 01/10/17 12:30 DC Ibuprofen (Motrin) 600 mg Q6H PRN PO PAIN 01/10/17 12:00 01/10/17 12:30 DC Acetaminophen 500 mg 500 mg Q6H PRN PO PAIN AND OR ELEVATED TEMP 01/10/17 12:00 01/10/17 12:30 DC Lactated Ringer's 1,000 ml @ 125 mls/hr Q8H IV 01/10/17 11:58 01/10/17 12:30 DC Oxytocin/Lactated Ringer's 500 ml @ 0 mls/hr ONCE PRN IV For Hemorrhage Management 01/10/17 12:00 01/10/17 12:30 DC Methylergonovine Maleate (Methergine) 0.2 mg ONCE PRN IM VAGINAL BLEEDING 01/10/17 12:00 01/10/17 12:30 DC Carboprost Tromethamine (Hemabate) 250 mcg ONCE PRN IM VAGINAL BLEEDING 01/10/17 12:00 01/10/17 12:30 DC Misoprostol (Cytotec) 1,000 mcg ONCE PRN LA VAGINAL BLEEDING 01/10/17 12:00 01/10/17 12:30 DC Ibuprofen (Motrin) 600 mg Q6H PRN PO PAIN 01/10/17 12:00 01/10/17 12:30 DC Acetaminophen 500 mg 500 mg Q6H PRN PO PAIN AND OR ELEVATED TEMP 01/10/17 12:00 01/10/17 12:30 DC Lactated Ringer's 1,000 ml @ 125 mls/hr Q8H IV 01/10/17 11:58 01/10/17 12:30 DC Oxytocin/Lactated Ringer's 500 ml @ 0 mls/hr ONCE PRN IV For Hemorrhage Management 01/10/17 12:00 01/10/17 12:30 DC Methylergonovine Maleate (Methergine) 0.2 mg ONCE PRN IM VAGINAL BLEEDING 01/10/17 12:00 01/10/17 12:30 DC Carboprost Tromethamine (Hemabate) 250 mcg ONCE PRN IM VAGINAL BLEEDING 01/10/17 12:00 01/10/17 12:30 DC Misoprostol (Cytotec) 1,000 mcg ONCE PRN LA VAGINAL BLEEDING 01/10/17 12:00 01/10/17 12:30 DC Ibuprofen (Motrin) 600 mg Q6H PRN PO PAIN 01/10/17 12:00 01/10/17 12:30 DC Acetaminophen (Tylenol Tab) 500 mg Q6H PRN PO PAIN AND OR ELEVATED TEMP 01/10/17 12:00 01/10/17 12:30 DC Influenza Virus Vaccine (Fluzone) 0.5 ml ONCE ONCE IM* 01/13/17 09:00 01/13/17 09:01 DC 01/12/17 12:16 healing well. Breast feeding the new born. Section Section: Repeat Complications Augmentation: No Induction: No Rupture of Membranes: No Condition on Discharge Physical Assessment Voiding: Yes Bowel Movement: Yes Breast: Soft, non-tender Fundus: Firm Abdomen and Incision: soft, Incision is healing well Calf Tenderness: No Patient Condition: Good JEFFERSON PFEIFFER MD Jan 13, 2017 10:45
[2017-01-13 15:30] VITALS: BP 110/60; PULSE 18; RESP 18
== END 2017-01-13 16:00 | disposition home or self-care (01) | DRG 766 ==
LOC: L-D 14:47 → OBT 14:47 → L-D 20:13 → PP1 01-10 17:59
PROVIDERS: ADMIT Obstetrics & Gynecology; ATTEND Obstetrics & Gynecology
PROC: 10D00Z1 Extraction of Products of Conception, Low, Open Approach (ICD-10-PCS; principal; 2017-01-10 11:15)
DX: O34.211 Maternal care for low transverse scar from previous cesarean delivery (principal); O48.0 Post-term pregnancy; Z3A.40 40 weeks gestation of pregnancy; Z37.0 Single live birth
CPT/HCPCS: 36415; 62319; 76816; 76818; 85025; 85610; 85730; 86592; 86850; 86900; 86901; 86920; 87340; 88307; 90686; 90715; 94760; 96360; 96361; 96372; 99464; G0463; J0690; J0780; J1885; J2175; J2270; J2274; J2405; J2590; J2765; J3010; J7120